=== PATIENT | female | born 1965 | race Caucasian/White ===

== ENCOUNTER → 2018-07-13 | Outpatient (CLI) | payer OTHER ==
--- NOTE | 2018-07-13 13:36 | US ---
EXAMINATION TYPE: US abdomen complete DATE OF EXAM: 07/13/2018 COMPARISON: NONE CLINICAL HISTORY: R10.9 abdominal pain. Nausea, back pain, abdominal bloating EXAM MEASUREMENTS: Liver Length: 16.0 cm Gallbladder Wall: 0.2 cm CBD: 0.2 cm Spleen: 11.5 cm Right Kidney: 11.5 x 5.8 x 5.3 cm Left Kidney: 11.3 x 5.9 x 5.6 cm Pancreas: Obscured by bowel gas Liver: Partially Obscured by overlying bowel gas Gallbladder: wnl Evidence for sonographic Levy's sign: No CBD: wnl Spleen: wnl Right Kidney: wnl Left Kidney: wnl Upper IVC: wnl Abd Aorta: wnl Sub optimal visualization overall d/t large amounts of bowel gas. Pancreas not seen. The liver is homogenous. The intrahepatic portion of the IVC and proximal abdominal aorta are within normal limits. There is no evidence of cholelithiasis. Common bile duct is unremarkable. The sple en is unremarkable. Kidneys are symmetric and free of hydronephrosis. No renal lesions are seen. IMPRESSION: Limited study. No distinct abnormality appreciated.
--- NOTE | 2018-07-13 15:12 | US ---
EXAMINATION TYPE: US transvaginal DATE OF EXAM: 07/13/2018 COMPARISON: NONE CLINICAL HISTORY: R10.9 abdominal pain. gen pelvic pain and bloating TECHNIQUE: Transvaginal (TV). Transvaginal sonographic images of the pelvis were acquired. EXAM MEASUREMENTS: Uterus: 8.0 x 4.1 x 5.4 cm Endometrial Stripe: 0.5 cm Right Ovary: 2.5 x 1.7 x 2.0 cm Left Ovary: 2.5 x 1.8 x 2.0 cm 1. Uterus: Anteverted somewhat heterogeneous echopattern 2. Endometrium: wnl 3. Right Ovary: wnl 4. Left Ovary: wnl 5. Bilateral Adnexa: wnl 6. Posterior cul-de-sac: no free fluid seen IMPRESSION: 1. Nonspecific myometrial heterogeneity.
== END ==
LOC: RADUSWWP 12:43
PROVIDERS: ATTEND Family Medicine
DX: R93.89 Abnormal findings on diagnostic imaging of other specified body structures (principal)
CPT/HCPCS: 76700; 76830

== ENCOUNTER 2019-07-31 08:01 | Day surgery (SDC) | payer OTHER ==
[2019-07-28 10:01] VITALS: BMI 34.2
[~2019-07-31 08:01] MED LIST: LACTATED RINGERS 1,000 ML IV SCH; LIDOCAINE 1% 20 ML VIAL (10MG/ML) FOR IV START INTRADERMA PRN
[2019-07-31 08:33] VITALS: RESP 16; TEMP 98.3
[2019-07-31] MEDS ORDERED: PROPOFOL 10 MG/ML 20 ML VIAL IV ONE (09:01)
--- NOTE | 2019-07-31 09:33 | P.PCN ---
Date of Procedure: 07/31/19 Description of Procedure: BRIEF HISTORY: Patient is a 53-year-old female presenting for outpatient colonoscopy for screening for malignant neoplasm colon. Patient denies change in bowel habits, blood per rectum or abdominal pain. Last colonoscopy 5 years ago with significant for colon polyps. PROCEDURE PERFORMED: Colonoscopy with polypectomy. PREOPERATIVE DIAGNOSIS: Screening for malignant neoplasm of the colon, last colonoscopy 5 years ago. ESTIMATED BLOOD LOSS: Minimal. IV sedation per Anesthesia. PROCEDURE: After informed consent was obtained, the patient, was brought into the endoscopy unit. IV sedation was administered by Anesthesia under continuous monitoring. Digital rectal examination was normal. Initially the Olympus CF-190 flexible video colonoscope was then inserted in the rectum, gradually advanced into the cecum without any difficulty. Careful examination was performed as the scope was gradually being withdrawn. Ileocecal valve and the appendiceal orifice were visualized and appeared normal. Prep was excellent. Mucosa of the cecum, ascending colon, transverse colon, descending colon, sigmoid colon, and rectum appeared normal. 2 diminutive descending colon polyp measuring 1 mm and 2 mm in size removed with cold forcep polypectomy. Retroflexion was performed in the rectum and no lesions were seen. The patient tolerated the procedure well. IMPRESSION: 2 diminutive descending colon polyp removed with cold forceps. Otherwise, normal-appearing colon from rectum to cecum. RECOMMENDATIONS: Findings of this examination were discussed with the patient in her mother. Okay to resume diet. Okay to resume medications. Await pathology from polypect [place]. Recommend repeat colonoscopy in 5 years pending pathology from polypectomy for a personal history of colon polyps.
[2019-07-31 09:53] VITALS: BP 132/86; PULSE 66
== END 2019-07-31 10:36 | disposition home or self-care (01) ==
LOC: ORWHC2ENDO 08:01
PROVIDERS: ATTEND Internal Medicine
DX: Z12.11 Encounter for screening for malignant neoplasm of colon (principal); D12.4 Benign neoplasm of descending colon; I10 Essential (primary) hypertension; F17.200 Nicotine dependence, unspecified, uncomplicated
CPT/HCPCS: 81025; 88305; 45380; J2704

== ENCOUNTER 2024-08-14 11:10 | Day surgery (SDC) | payer BC, OTHER ==
[2024-08-14 12:50] VITALS: TEMP 97.7
[2024-08-14] MEDS: LACTATED RINGERS 1,000 ML IV SCH (12:57)
[2024-08-14] MEDS: IV FLUID CONTINUATION 1,000 ML IV ONE (12:57)
[2024-08-14] MEDS: LIDOCAINE 1% (10MG/ML) FOR IV START INTRADERMA PRN (12:57)
[2024-08-14] MEDS ORDERED: LIDOCAINE 1% INJ 10MG/ML (20 ML MDV) ONE (13:32)
[2024-08-14] MEDS ORDERED: PROPOFOL 10 MG/ML 20 ML VIAL IV ONE (13:32)
--- NOTE | 2024-08-14 13:49 | P.PCN ---
Date of Procedure: 08/14/24 Procedure(s) Performed: BRIEF HISTORY: Patient is a 58-year-old pleasant white female scheduled for an elective colonoscopy as a part of screening for colon cancer. PROCEDURE PERFORMED: Colonoscopy with snare polypectomy. PREOPERATIVE DIAGNOSIS: Screening for colon cancer. IV sedation per Anesthesia. PROCEDURE: After informed consent was obtained, the patient, was brought into the endoscopy unit. IV sedation was administered by Anesthesia under continuous monitoring. Digital rectal examination was normal. Initially the Olympus CF-160 flexible video colonoscope was then inserted in the rectum, gradually advanced into the cecum without any difficulty. Careful examination was performed as the scope was gradually being withdrawn. Ileocecal valve and the appendiceal orifice were visualized and appeared normal. Prep was excellent. Mucosa of the cecum, ascending colon, transverse colon, descending colon, normal. In the sigmoid colon there is a 5 mm polyp that was removed by cold snare polypectomy. Rest of sigmoid colon, and rectum appeared normal. Proximal rectum there is a 4 mm and 6 mm polyp that was removed by cold snare polypectomy. Retroflexion was performed in the rectum and no lesions were seen. The patient tolerated the procedure well. IMPRESSION: 5 mm sigmoid colon polyp status post cold snare polypectomy 4 mm and 6 mm proximal rectal polyp status post cold snare polypectomy RECOMMENDATIONS: Findings of this examination were discussed with the patient as well as her family.. She was advised to follow with the biopsy results. If the biopsy reveals adenoma she can have repeat colonoscopy in 5 years.
[2024-08-14 13:57] VITALS: RESP 14
[2024-08-14 14:54] VITALS: BP 151/68; PULSE 86
== END 2024-08-14 15:21 | disposition home or self-care (01) ==
LOC: ORWHC2ENDO 11:10
PROVIDERS: ATTEND Internal Medicine Gastroenterology
DX: Z12.11 Encounter for screening for malignant neoplasm of colon (principal); K63.5 Polyp of colon; K62.1 Rectal polyp; I10 Essential (primary) hypertension; E78.5 Hyperlipidemia, unspecified; F17.210 Nicotine dependence, cigarettes, uncomplicated; Z90.10 Acquired absence of unspecified breast and nipple; Z89.529 Acquired absence of unspecified knee; Z79.899 Other long term (current) drug therapy
CPT/HCPCS: 88305; 45385; J2003; J2704